=== PATIENT | male | born 1970 | race Caucasian/White ===

== ENCOUNTER 2017-10-26 13:44 | Emergency (ER) | payer SELFPAY ==
--- NOTE | 2017-10-26 14:03 | NUR ---
WENT TO CALL PT IN ER LOBBY, NO ANSWER. PER ER ADMITTING PATIENT WENT TO ANOTHER CLINIC. PATIENT LEFT WITHOUT BEING SEEN BY DR. KNOX. NO FURTHER CARE PROVIDED FOR PATIENT.
== END 2017-10-26 14:03 | disposition left against medical advice (07) ==
LOC: MED 13:44
DX: R20.0 Anesthesia of skin (principal); Z53.21 Procedure and treatment not carried out due to patient leaving prior to being seen by health care provider